=== PATIENT | female | born 1960 | race Caucasian/White ===

== ENCOUNTER 2018-09-07 21:33 | Emergency (ER) | payer OTHER, MEDICAID ==
--- NOTE | 2018-09-07 22:17 | ED Physician Documentation ---
PD HPI NVD - Stated complaint Stated Complaint: N/V/D - Chief complaint Chief Complaint: Abd Pain - History obtained from History obtained from: Patient - History of Present Illness Timing - onset: How many hours ago (2 1/2), Today Timing - duration: Hours (1-2) Timing - details: Abrupt onset, Still present (much less, but still with some nausea.) Associated symptoms: Abdominal pain (Mild cramping upper abdominal pain associated with the nausea and repetitive vomiting.). No: Fever Contributing factors: Bad food (She and her both ate [place] mushrooms that they had picked themselves in [place] and dehydrated. They have had some of these in the past sauted. The had rehydrated them and CHOP them up and put them in a sauce without cooking. They both felt abruptly nauseated with repetitive vomiting about 20 minutes after eating the sauce. They also had some blue cheese dressing on the solid and some well cooked chicken. Given both of them sick abruptly together, they presumed it was food related and were concerned about the mushrooms.). No: Sick contact Improved by: No: Vomiting Worsened by: Eating Similar symptoms before: Has not had sx before Recently seen: Not recently seen Review of Systems Constitutional: denies: Fever, Myalgias Nose: denies: Rhinorrhea / runny nose, Congestion Throat: denies: Sore throat Cardiac: denies: Chest pain / pressure Respiratory: denies: Dyspnea, Cough GI: reports: Abdominal Pain, Nausea, Vomiting. denies: Diarrhea, Hematemesis, Bloody / black stool Skin: denies: Rash, Lesions Neurologic: denies: Altered mental status, Headache PD PAST MEDICAL HISTORY - Past Medical History Past Medical History: Yes Endocrine/Autoimmune: HyPOthyroidism - Past Surgical History Past Surgical History: Yes Ortho: Other - Present Medications Home Medications: Ambulatory Orders Medication Instructions Recorded Confirmed Thyroid,Pork [[place] Thyroid] 1 tab PO DAILY 09/07/18 09/07/18 Thyroid,Pork [[place] Thyroid] 15 mg PO DAILY 09/07/18 09/07/18 Ondansetron Odt [Zofran] 4 mg TL Q6H PRN #15 tablet 09/08/18 - Allergies Allergies/Adverse Reactions: Allergies Allergy/AdvReac Type Severity Reaction Status Date / Time doxycycline calcium * Allergy Unknown Verified 09/07/18 21:40 [From Vibramycin] doxycycline hyclate * Allergy Unknown Verified 09/07/18 21:40 [From Vibramycin] doxycycline monohydrate * Allergy Unknown Verified 09/07/18 21:40 [From Vibramycin] Sulfa (Sulfonamide Allergy Hives Verified 09/07/18 21:40 Antibiotics) - Social History Does the pt smoke?: No Smoking Status: Never smoker Does the pt drink ETOH?: Yes Does the pt have substance abuse?: No - Immunizations Immunizations are current?: Yes - POLST Patient has POLST: No PD ED PE NORMAL - Vitals Vital signs reviewed: Yes - General General: Alert and oriented X 3, No acute distress, Well developed/nourished - HEENT HEENT: Pharynx benign - Neck Neck: Supple, no meningeal sign, No adenopathy - Cardiac Cardiac: RRR, No murmur - Respiratory Respiratory: Clear bilaterally - Abdomen Abdomen: Normal bowel sounds, Soft, Non distended, No organomegaly, Other (mild epigastric tender without guarding) - Female Female : Deferred - Rectal Rectal: Deferred - Back Back: No CVA TTP - Derm Derm: Normal color, Warm and dry - Extremities Extremities: Normal ROM s pain - Neuro Neuro: Alert and oriented X 3, No motor deficit, Normal speech Results - Vitals Vitals: Vital Signs - 24 hr 09/07/18 09/08/18 21:37 00:20 Temperature 36.3 C L 36.3 C L Heart Rate 108 H 89 Respiratory 17 16 Rate Blood Pressure 147/103 H 120/81 H O2 Saturation 98 98 Oxygen O2 Source Room air - Labs Labs: Laboratory Tests 09/07/18 23:25 Sodium 137 Potassium 3.6 Chloride 102 Carbon Dioxide 27 Anion Gap 8.0 BUN 14 Creatinine 0.8 Estimated GFR (MDRD) 74 L Glucose 110 H Calcium 9.0 Total Bilirubin 1.1 H AST 22 ALT 20 Alkaline Phosphatase 71 Total Protein 6.9 Albumin 4.1 Globulin 2.8 Albumin/Globulin Ratio 1.5 Lipase 29 PD MEDICAL DECISION MAKING - ED course Complexity details: reviewed results, considered differential (Presume mushroom toxicity or could be contamination on the mushrooms. They had picked [place] mushrooms which are fairly distinct. They had not been cooked after rehydrating so there could be some toxin which is less common femoral rales but are possible with false real. There could also been some contamination such as bacteria or mold on the mushroom. Alternatively it could have been the salad dressing or something else in the meal. However be more inclined to think over the mushrooms. Her is similarly sick and they are both feeling better after a few hours of nausea and vomiting. There are basic blood tests and liver enzymes are normal here. Given the abruptness of the illness, and it is less likely to be 1 of the indolent liver toxic mushroom toxicities.), d/w patient Departure - Departure Disposition: 01 Home, Self Care Clinical Impression: Nausea and vomiting Qualifiers: Vomiting type: unspecified Vomiting Intractability: non-intractable Qualified Code(s): R11.2 - Nausea with vomiting, unspecified Mushroom poisoning Qualifiers: Encounter type: initial encounter Injury intent: accidental or unintentional Qualified Code(s): T62.0X1A - Toxic effect of ingested mushrooms, accidental (unintentional), initial encounter Condition: Stable Record reviewed to determine appropriate education?: Yes Instructions: ED Food Poison Or Gastroenteritis Follow-Up: Dhiraj Danielle MD [Primary Care Provider] - Prescriptions: Ondansetron Odt [Zofran] 4 mg TL Q6H PRN #15 tablet PRN Reason: Nausea / Vomiting Comments: Your blood tests this evening are normal. This may have been a intestinal irritation from the mushroom or could have potentially even been some contamination on the mushroom. Subsequently Cook any mushrooms before eating. If your symptoms are resolved pretty much now, I would not expect him to return. An abrupt illness from the mushroom like this is usually not associated with the progressive liver toxicity. If you have any continued nausea or stomach upset over the next couple of days, you could follow-up with your primary care to have them recheck the blood tests. If you feel normal, I would not necessarily see a need for repeating the blood tests. Discharge Date/Time: 09/08/18 00:22
[2018-09-07] MEDS ORDERED: ONDANSETRON ODT 4 MG TABLET TL STA (23:05)
[2018-09-07 23:58] LABS: ALBUMIN 4.1 g/dL (3.2-5.5); ALBUMIN/GLOBULIN RATIO 1.5 (1.0-2.2); BILIRUBIN,TOTAL 1.1 mg/dL (0.2-1.0); CREATININE 0.8 mg/dL (0.4-1.0); TOTAL PROTEIN 6.9 g/dL (6.7-8.2)
[2018-09-08] MEDS ORDERED: ONDANSETRON ODT 4 MG Prepack 2 TL PRN (00:07)
[2018-09-08 00:23] VITALS: BP 120/81
== END 2018-09-08 00:22 | disposition home or self-care (01) ==
LOC: ED 21:33
DX: T62.0X1A Toxic effect of ingested mushrooms, accidental (unintentional), initial encounter (principal); R11.2 Nausea with vomiting, unspecified
CPT/HCPCS: 36415; 80053; 83690; 99283; Q0162

== ENCOUNTER 2019-02-21 14:04 | Outpatient (CLI) | payer OTHER ==
[2019-02-21 18:04] LABS: THYROID STIMULATING HORMONE 1.69 uIU/mL (0.34-5.60)
[2019-02-21 18:06] LABS: FREE T4 (FREE THYROXINE) 0.71 ng/dL (0.58-1.64)
== END 2019-02-21 14:05 | disposition home or self-care (01) ==
LOC: LAB.F 14:04
PROVIDERS: ATTEND Specialist
DX: E03.9 Hypothyroidism, unspecified (principal)
CPT/HCPCS: 36415; 84439; 84443